=== PATIENT | male | born 1990 | race Caucasian/White ===

== ENCOUNTER 2017-06-06 12:21 | Emergency (ER) | payer OTHER ==
[2017-06-06 13:25] LABS: APPEARANCE HAZY (CLEAR); BILIRUBIN NEGATIVE (NEGATIVE); COLOR YELLOW (YELLOW); GLUCOSE 50 mg/dL (NEGATIVE); KETONE NEGATIVE (NEGATIVE); NITRITE NEGATIVE (NEGATIVE); PROTEIN TRACE mg/dL (NEGATIVE); UROBILINOGEN NORMAL (NORMAL)
[2017-06-06 13:42] LABS: BACTERIA MODERATE /hpf (NONE SEEN); EPITHELIAL CELLS 0-5 /hpf (0-5); MUCUS >1+ /lpf (NONE SEEN); RED CELLS - URINE >50 /hpf (0-5)
[2017-06-10] MEDS ORDERED: FLOMAX0.4 MG PO (15:33)
[2017-06-10] MEDS ORDERED: CIPRO500 MG PO (15:34)
[2017-06-10] MEDS ORDERED: PERCOCET 7.5/321 TAB PO (15:34)
[2017-06-10] MEDS ORDERED: HYDROCODON-ACE1 EAC7 PO (15:35)
[2017-06-10 15:45] VITALS: BMI 22.1
== END 2017-06-06 16:00 | disposition home or self-care (01) ==
LOC: D.ER 12:21
PROVIDERS: Emergency Medicine
DX: N20.1 Calculus of ureter (principal); F17.200 Nicotine dependence, unspecified, uncomplicated

== ENCOUNTER 2017-06-09 11:52 | Emergency (ER) | payer OTHER ==
[2017-06-09 12:14] LABS: BASOPHILS 0.4 % (0-2); EOSINOPHILS 3.3 % (0-7); HEMATOCRIT 40.7 % (42.0-54.0); HEMOGLOBIN 14.2 g/dL (13.5-17.5); IMMATURE GRANULOCYTES 0.1 % (0-5); MCH 30.1 pg (26.0-34.0); MCHC 34.9 g/dL (31.0-37.0); MCV 86.2 fL (80.0-100.0); MEAN PLATELET VOLUME 9.7 fL (7.4-10.4); MONOCYTES 10.1 % (2-11); NEUTROPHILS 57.1 % (40-80); PLATELET COUNT 165 10x3/uL (130-400); RBC 4.72 10x6/uL (4.20-6.10); RDW 12.4 % (11.5-14.5); WBC 7.8 10x3/uL (4.8-10.8)
[2017-06-09 12:21] LABS: APPEARANCE HAZY (CLEAR); BILIRUBIN NEGATIVE (NEGATIVE); COLOR YELLOW (YELLOW); GLUCOSE NEGATIVE (NEGATIVE); KETONE NEGATIVE (NEGATIVE); NITRITE NEGATIVE (NEGATIVE); PROTEIN 3+ mg/dL (NEGATIVE); UROBILINOGEN NORMAL (NORMAL)
[2017-06-09 12:23] LABS: BACTERIA FEW /hpf (NONE SEEN); EPITHELIAL CELLS OCC /hpf (0-5); MUCUS <1+ /lpf (NONE SEEN); WHITE CELLS - URINE 0-5 /hpf (0-5)
[2017-06-09 12:47] LABS: ALBUMIN 4.2 g/dL (3.4-5.0); ALKALINE PHOSPHATASE 54 U/L (46-116); ALT (SGPT) 28 U/L (10-68); BILIRUBIN - TOTAL 0.54 mg/dL (0.2-1.3); CALC OSMOLALITY 277 mosm/kg (275-300); CALCIUM 9.1 mg/dL (8.5-10.1); CARBON DIOXIDE 25.7 mmol/L (21.0-32.0); CHLORIDE - SERUM 104 mmol/L (98-107); CREATININE - SERUM 1.1 mg/dL (0.6-1.3); GLUCOSE 94 mg/dL (74-106); POTASSIUM - SERUM 3.8 mmol/L (3.5-5.1); PROTEIN - SERUM 7.5 g/dL (6.4-8.2); SODIUM 140 mmol/L (136-145); UREA NITROGEN 11 mg/dL (7-18); eGFR NON AFRICAN AMERICAN 86 mL/min (90-120)
[2017-06-10] MEDS ORDERED: FLOMAX0.4 MG PO (15:33)
[2017-06-10] MEDS ORDERED: CIPRO500 MG PO (15:34)
[2017-06-10] MEDS ORDERED: PERCOCET 7.5/321 TAB PO (15:34)
[2017-06-10] MEDS ORDERED: HYDROCODON-ACE1 EAC7 PO (15:35)
[2017-06-10 15:45] VITALS: BMI 22.1
== END 2017-06-09 14:10 | disposition home or self-care (01) ==
LOC: D.ER 11:52
PROVIDERS: Family Medicine
DX: N20.1 Calculus of ureter (principal)

== ENCOUNTER 2017-06-10 22:38 | Day surgery (SDC) | payer OTHER ==
[~2017-06-10] VITALS: Ht 167.6 cm; Wt 62.1 kg
--- NOTE | ~2017-06-10 | OP ---
PATIENT NAME: CONTRERAS BOSTON MEDICAL RECORD: [id number] :90 LOCATION:D.OPS ADMISSION DATE: SURGEON: MARCIANO HERRERA MD DATE OF OPERATION: 06/10/2017 SURGEON: Marciano Herrera MD ANESTHESIA: General anesthesia by Greg Samuels CRNA. DIAGNOSES: Right distal ureteral 4 mm stone. Bilateral renal stones. Possible bladder carcinoma in situ. PROCEDURES: Cystoscopy, bladder biopsy times 2, right retrograde pyelogram, right ureteroscopy and stone extraction, right ureteral stent insertion 6-Hong Konger x 24 cm with string attached. FINDINGS: Radiolucent stones. A 1 cm erythematous patch in the mid posterior bladder wall and this was biopsied. A 4 mm distal ureteral stone. BLOOD LOSS: None. CLINICAL HISTORY: This is a 26-year-old male, who has a previous history of kidney stone. He thought they were of calcium oxalate composition. He had right flank pain for the past 4 days and he came to the Emergency Room twice. A CT scan was obtained and this showed bilateral nonobstructive renal stones. He also has a 4-mm stone in the right distal ureter causing mild hydronephrosis. He had not passed the stone and he was still having pain when he saw me in the office this afternoon. He is otherwise healthy. He does smoke 1 pack per day since age 18. He has been n.p.o. since last night. HE IS ALLERGIC TO PENICILLIN. We gave him [employer] to the OR. The plan is to extract the stone and insert a stent. DESCRIPTION OF PROCEDURE: The patient was given induction of general anesthesia. He was placed in dorsal lithotomy position and prepped and draped. A 21-Hong Konger cystoscope with 30-degree lens was used for visualization. Penile urethra was normal. Prostatic urethra is nonobstructive. Going into the bladder, there are single ureteral orifices on each side. The right ureteral orifice was edematous due to inflammation from the presence of the stone. Adjacent to the right ureteral orifice was a patch about 1 cm in diameter which was quite erythematous and velvety. No other areas of suspicious appearance was noted in the bladder. I placed a cold cup biopsy forcep through the scope and I obtained 2 biopsies of this patch on the posterior bladder wall. Since he is a smoker, there is always a risk that this could be carcinoma in situ. These specimens were sent to pathology in formalin. Using sterile water for bladder irrigation, a Bugbee electrode was introduced and it was used to fulgurate the biopsy sites. We then switched back to normal saline irrigation and fluoroscopy did not reveal any visible radiodense stones. I therefore had to perform a retrograde pyelogram to be sure that the stone was still present. A 5-Hong Konger open-ended ureteral catheter was inserted into the right ureteral orifice. We then injected diluted contrast. We identified the mild right hydroureteronephrosis. When we took the catheter out and observe the drainage film, we saw that the hydronephrosis, came down to a filling defect in the distal ureter, which we presumed to be the stone. This a filling defect was about 3-4 cm away from the OPERATIVE REPORT [id number] CONTRERAS BOSTON ureteral orifice. We then inserted the ureteral catheter back and placed a Sensor wire through its lumen up to the renal pelvis. The ureteral access catheter was then completely removed. Over the wire, we inserted an 18-Hong Konger x 4 cm long ureteral dilation balloon. The balloon was inflated to 10 atmospheres for a few seconds and then the balloon was deflated and completely removed. We then switched to the ureteroscope. The patient's ureter was rather difficult to navigate, but I got up to the mid ureter. At this point, we placed our 0-tip 4-wire basket out and we were ready to catch any stone as I encountered while pulling the scope back out. In the distal ureter, we finally saw the stone. It had been crushed up by our ureteral dilation balloon. We tried to gather up two of the largest fragments. As we pulled the scope out to retrieve our specimen, the specimen was lost with the scope out of the patient. Going back in with the ureteroscope, flushing action of the ureteroscope had removed all the others stone debris into the bladder. Thus, we do not have any stone for analysis. I did not see any other stone present in the ureter. We then loaded the wire back on to the cystoscope. Over the wire, a 6-Hong Konger x 24 cm ureteral stent was inserted. Once the proximal end was in the renal pelvis, the wire was withdrawn and the proximal end was seen to coil within the renal pelvis. The distal end was pushed into the bladder using a pusher. The wire was entirely removed. The bladder was then emptied through the scope and the scope was removed. The string on the distal end of the stent is maintained. It was tied to itself in a knot and cut shorter. I will start the patient on potassium citrate 10 mEq p.o. t.i.d. in order to alkalinize the urine. He may have uric acid stones in spite of his claims to have calcium stones previously. We will check his urine pH when he comes for followup next week to have the stent removed. TRANSINT:[id number] Voice Confirmation ID: [id number] DOCUMENT ID: [id number] MARCIANO HERRERA MD at 0926 CC: [id number] DICTATION DATE: 06/10/172223 [place] PROFESSOR: 06/11/17 [id number] 06/10/17 [id number] [place] [address]
[2017-06-10 15:45] VITALS: BP 101/63; Ht 167.6 cm; Wt 62.1 kg
[~2017-06-10 22:38] MED LIST: CIPRO500 MG PO; FLOMAX0.4 MG PO; HYDROCODON-ACE1 EAC7 PO; PERCOCET 7.5/321 TAB PO
[2017-06-10 22:43] VITALS: BP 131/80
== END 2017-06-10 23:58 | disposition home or self-care (01) ==
LOC: D.OPS 22:38 → D.MS 22:38 → D.OPS 23:58
DX: N20.2 Calculus of kidney with calculus of ureter (principal); F17.210 Nicotine dependence, cigarettes, uncomplicated; Z88.0 Allergy status to penicillin